=== PATIENT | female | born 1950 | race Caucasian/White ===

== ENCOUNTER → 2016-05-27 | Outpatient (CLI) | payer OTHER | END | disposition home or self-care (01) | LOC: MAMMO 13:01 | DX: Z12.31 Encounter for screening mammogram for malignant neoplasm of breast (principal) ==

== ENCOUNTER → 2016-08-27 | Outpatient (CLI) | payer OTHER | END | disposition home or self-care (01) | LOC: MEDIPORT 09:27 | DX: C67.9 Malignant neoplasm of bladder, unspecified (principal) ==

== ENCOUNTER → 2016-12-08 | Outpatient (CLI) | payer OTHER | END | disposition home or self-care (01) | LOC: MEDIPORT 10:00 | DX: C67.9 Malignant neoplasm of bladder, unspecified (principal) ==

== ENCOUNTER → 2017-01-19 | Outpatient (CLI) | payer OTHER ==
--- NOTE | 2017-01-19 11:48 | NUR ---
CLIENT AMBULATORY TO TREATMENT AREA FOR PORT FLUSH. PORT WAS PREPPED AND ACCESSED. BLOOD RETURN NOTED. PORT WAS FLUSHED WITH SALINE FOLLOWED BY HEPARIN. NEEDLE WITHDRAWN. NO BLEEDING SEEN. CLIENT THEN AMBULATED FROM TREATMENT AREA IN STABLE CONDITION
== END | disposition home or self-care (01) ==
LOC: MEDIPORT 03:00
DX: C67.9 Malignant neoplasm of bladder, unspecified (principal)

== ENCOUNTER → 2017-02-23 | Outpatient (CLI) | payer OTHER ==
--- NOTE | 2017-02-23 11:02 | NUR ---
CLIENT AMBULATORY TO TREATMENT AREA FOR PORT FLUSH. PORT WAS PREPPED X 2 AND ACCESSED USING ASEPTIC TECHNIQUE. BRISK BLOOD RETURN WAS NOTED. PORT WAS FLUSHED WITH SALINE FOLLOWED BY HEPARIN. NEEDLE WITHDRAWN. NO BLEEDING SEEN. CLIENT THEN AMBULATED FROM TREATMENT AREA IN STABLE CONDITION
== END | disposition home or self-care (01) ==
LOC: MEDIPORT 00:41
DX: Z45.2 Encounter for adjustment and management of vascular access device (principal); C67.9 Malignant neoplasm of bladder, unspecified

== ENCOUNTER → 2017-03-30 | Outpatient (CLI) | payer OTHER ==
--- NOTE | 2017-03-30 10:55 | NUR ---
PT HERE FOR MEDIPORT FLUSH. RSC ACCESSED WITH NONCORING NEEDLE AFTER SITE PREPPED. PROMPT BLOOD RETURN NOTED. HEPARIN FLUSH COMPLETE WITHOUT DIFFUCULTY PT TOLERATED WELL. DRESSING APPLIED. RESCHEDULE FOR NEXT FLUSH IN 6 WEEKS. NO BLEEDING NOTE. MARIAM LAZO RN
== END ==
LOC: MEDIPORT 03:57
DX: Z45.2 Encounter for adjustment and management of vascular access device (principal); C67.9 Malignant neoplasm of bladder, unspecified

== ENCOUNTER → 2017-05-12 | Outpatient (CLI) | payer OTHER ==
--- NOTE | 2017-05-12 11:11 | NUR ---
CLIENT AMBULATORY TO TREATMENT AREA FOR MEDIPORT FLUSH. PORT WAS PREPPED X 2 AND ACCESSED USING ASEPTIC TECHNIQUE. BRISK BLOOD RETURN WAS NOTED. PORT WAS FLUSHED WITH SALINE FOLLOWED BY HEPARIN. NEEDLE WAS WITHDRAWN. BANDAID TO SITE. NO BLEEDING SEEN. CLIENT THEN AMBULATED FROM TREATMENT AREA IN STABLE CONDITION
== END | disposition home or self-care (01) ==
LOC: MEDIPORT 01:41
DX: Z45.2 Encounter for adjustment and management of vascular access device (principal)

== ENCOUNTER → 2017-05-25 | Day surgery (SDC) | payer OTHER ==
[~2017-05-25] VITALS: Ht 162.5 cm; Wt 74.8 kg
[~2017-05-25] MED LIST: FERROUS GLUCON324 MG PO; FLONASE ALLERG9.9 ML NAS; MONTELUKAST SOD10 MG PO; OMEPRAZOLE D/R20 MG PO; PROAIR HFA8.5 GM INH; ROPINIROLE HY0.25 MG PO; VITAMIN D35000 UNIT PO
--- NOTE | ~2017-05-25 | O ---
[place], [place] OPERATIVE NOTE [id number] UN[facility] #: [id number] ROOM: DOCTOR: ARAMIS COREAS MD BIRTHDATE: [birth year] DOS: 05/25/2017 PREOPERATIVE DIAGNOSIS: Cataract, left eye. POSTOPERATIVE DIAGNOSIS: Cataract, left eye. OPERATION: Extracapsular cataract extraction by phacoemulsification with posterior chamber intraocular lens implantation, left eye. ANESTHESIA: Monitored standby. OPERATIVE FINDINGS AND PROCEDURE: 2% Xylocaine topical anesthetic gel was applied to the eye in the preop area. The patient was taken to the operating room and prepped and draped in the standard fashion for sterile intraocular surgery. A time out procedure was performed verifying correct patient, correct site and corrects lens with Chet Coreas M.D. The operating microscope was swung into position and the lid speculum was inserted. Using a Chana paracentesis blade, a paracentesis was made through clear cornea. Viscoelastic was used to fill the anterior chamber. Using a metal keratome a 2.4 mm self-sealing clear corneal cataract incision was made temporally at the limbus. Using a pre-bent 25 gauge cystotome needle, a standard continuous curvilinear capsulorrhexis was performed. The anterior capsule was removed with forceps. The lens nucleus was hydrodissected and phacoemulsified in the posterior chamber. Cortical material was removed with the irrigation aspiration hand piece and the posterior capsule was then polished with a curet under irrigation. The posterior chamber and capsular bag were filled with viscoelastic. A posterior chamber intraocular lens manufactured by: [employer], Model #[id number], and 23.5 diopters in strength were then inserted into the posterior chamber and within the capsular bag using the lens cartridge and injector system. Viscoelastic was removed using the irrigation aspiration handpiece. The anterior chamber was filled with balanced salt solution through the paracentesis. Both the paracentesis site and cataract incisions were hydrated with BSS and verified to be water-tight and self-sealing. The incision checked to be water-tight using a Weck-Lesly sponge. The integrity of the cataract wound and ocular tension were checked. Lid speculum and drapes were removed. The patient was transferred from the operating room to the recovery room in satisfactory condition. [place], [place] OPERATIVE NOTE NAME: FAUSTO TAFOYA UNIT #: [id number] ROOM: DOCTOR: ARAMIS COREAS MD BIRTHDATE: [birth year] ARAMIS COREAS MD CM:OPRECORD:OPERATIVE NOTE [id number] ARAMIS COREAS MD 05/25/17 1532 interface
[2017-05-25 12:20] VITALS: BP 133/68
[2017-05-25 13:20] VITALS: BP 120/53
[2017-05-25 13:35] VITALS: BP 119/60
[2017-05-25 13:50] VITALS: BP 111/66
== END | disposition home or self-care (01) ==
LOC: SDC 05-20 08:45
DX: H26.9 Unspecified cataract (principal); J45.909 Unspecified asthma, uncomplicated; Z98.890 Other specified postprocedural states; Z85.51 Personal history of malignant neoplasm of bladder

== ENCOUNTER → 2017-06-29 | Day surgery (SDC) | payer OTHER ==
[~2017-06-29] VITALS: Ht 162.5 cm; Wt 74.8 kg
--- NOTE | ~2017-06-29 | O ---
[place], [place] OPERATIVE NOTE NAME: FAUSTO TAFOYA UNIT #: [id number] ROOM: DOCTOR: JOSS RANGELARAMIS BIRTHDATE: [birth year] DOS: 06/29/2017 PREOPERATIVE DIAGNOSIS: Cataract, right eye. POSTOPERATIVE DIAGNOSIS: Cataract, right eye. OPERATION: Extracapsular cataract extraction by phacoemulsification with posterior chamber intraocular lens implantation, right eye. ANESTHESIA: Monitored standby. OPERATIVE FINDINGS AND PROCEDURE: 2% Xylocaine topical anesthetic gel was applied to the eye in the preop area. The patient was taken to the operating room and prepped and draped in the standard fashion for sterile intraocular surgery. A time out procedure was performed verifying correct patient, correct site and corrects lens with Chet Coreas MD. The operating microscope was swung into position and the lid speculum was inserted. Using a Chana paracentesis blade, a paracentesis was made through clear cornea. Viscoelastic was used to fill the anterior chamber. Using a metal keratome a 2.4 mm self-sealing clear corneal cataract incision was made temporally at the limbus. Using a pre-bent 25 gauge cystotome needle, a standard continuous curvilinear capsulorrhexis was performed. The anterior capsule was removed with forceps. The lens nucleus was hydrodissected and phacoemulsified in the posterior chamber. Cortical material was removed with the irrigation aspiration hand piece and the posterior capsule was then polished with a curet under irrigation. The posterior chamber and capsular bag were filled with viscoelastic. A posterior chamber intraocular lens manufactured by: [employer], Model #[id number], and 23.5 diopters in strength were then inserted into the posterior chamber and within the capsular bag using the lens cartridge and injector system. Viscoelastic was removed using the irrigation aspiration handpiece. The anterior chamber was filled with balanced salt solution through the paracentesis. Both the paracentesis site and cataract incisions were hydrated with BSS and verified to be water-tight and self-sealing. Cefuroxime 1 mg/0.1 mL was injected into the anterior chamber through the paracentesis site. The incision checked to be water-tight using a Weck-Lesly sponge. The integrity of the cataract wound and ocular tension were checked. Lid speculum and drapes were removed. The patient was transferred from the operating room to the recovery room in satisfactory condition. [place], [place] OPERATIVE NOTE NAME: FAUSTO TAFOYA UNIT #: [id number] ROOM: DOCTOR: ARAMIS COREAS MD BIRTHDATE: [birth year] ARAMIS COREAS MD CM:OPRECORD:OPERATIVE NOTE [id number] ARAMIS COREAS MD 06/29/17 1125 interface
[2017-06-29 10:00] VITALS: BP 131/77
[2017-06-29 11:05] VITALS: BP 125/72
[2017-06-29 11:20] VITALS: BP 131/75
[2017-06-29 11:34] VITALS: BP 122/65
== END ==
LOC: SDC 06-24 12:30
DX: H26.9 Unspecified cataract (principal); J45.909 Unspecified asthma, uncomplicated; Z98.890 Other specified postprocedural states; Z88.0 Allergy status to penicillin; Z88.1 Allergy status to other antibiotic agents

== ENCOUNTER → 2017-08-10 | Outpatient (CLI) | payer OTHER | END | disposition home or self-care (01) | LOC: MEDIPORT 07-06 11:00 | DX: Z45.2 Encounter for adjustment and management of vascular access device (principal) ==

== ENCOUNTER → 2017-09-21 | Outpatient (CLI) | payer OTHER ==
[2017-09-21 13:46] LABS: BASO # 0.1 10*3/uL (0.0-0.1); EOS # 0.2 10*3/uL (0.0-0.4); EOS % 4.1 % (1.0-4.0); HEMATOCRIT 39.2 % (37.0-47.0); HEMOGLOBIN 13.1 g/dl (12.0-16.0); LYMPH # 1.3 10*3/uL (1.3-4.4); LYMPH % 22.7 % (27.0-41.0); MEAN CELL VOLUME 94.2 fl (81.0-99.0); MEAN CORPUSCULAR HGB 31.5 pg (27.0-31.0); MEAN CORPUSCULAR HGB CONC 33.4 g/dl (33.0-37.0); MEAN PLATELET VOLUME 11.3 fl (9.6-12.3); MONO # 0.6 10*3/uL (0.1-1.0); MONO % 10.6 % (3.0-9.0); NEUT # 3.6 10*3/uL (2.3-7.9); NEUT % 61.4 % (47.0-73.0); PLATELET COUNT AUTOMATED 159 10*3/uL (130-400); RED BLOOD COUNT 4.16 10*6/uL (4.10-5.10); RED CELL DISTRI WIDTH 12.8 % (0-14.5); WHITE BLOOD COUNT 5.9 10*3/uL (4.8-10.8)
[2017-09-21 14:00] LABS: ALBUMIN 3.3 gm/dl (3.1-4.5); BUN 26 mg/dl (7-24); CHLORIDE 106 mmol/L (98-107); CHOLESTEROL 268 mg/dL (<200); POTASSIUM 4.2 mmol/L (3.5-5.1); SODIUM 142 mmol/L (136-145); TRIGLYCERIDES 154 mg/dl (<150); VLDL CHOLESTEROL 31 mg/dL (6-40)
[2017-09-21 14:05] LABS: ALKALINE PHOSPHATASE 108 U/L (45-117); BILIRUBIN, DIRECT < 0.1 mg/dL (0.0-0.2); HDL CHOLESTEROL 66 mg/dl (40-60); IRON 91 ug/dL (50-170); LDL CHOLESTEROL 171 mg/dL (9-159); PHOSPHOROUS 3.4 mg/dL (2.5-4.9); SGOT/AST 24 IU/L (3-35); SGPT/ALT 19 U/L (12-78); TOTAL PROTEIN 6.7 gm/dL (6.4-8.2)
[2017-09-21 14:07] LABS: VITAMIN D, 25-HYDROXY 26.5 ng/mL (30-100)
== END | disposition home or self-care (01) ==
LOC: MEDIPORT 01:51 → LAB 01:51 → MEDIPORT 11:00
PROVIDERS: Internal Medicine
DX: G25.81 Restless legs syndrome (principal); J45.20 Mild intermittent asthma, uncomplicated; Z98.84 Bariatric surgery status

== ENCOUNTER → 2017-11-02 | Outpatient (CLI) | payer OTHER | LOC: MEDIPORT 01:15 | DX: Z45.2 Encounter for adjustment and management of vascular access device (principal); I10 Essential (primary) hypertension ==

== ENCOUNTER → 2017-12-14 | Outpatient (CLI) | payer OTHER | END | disposition home or self-care (01) | LOC: MEDIPORT 08:01 | DX: Z45.2 Encounter for adjustment and management of vascular access device (principal); I10 Essential (primary) hypertension ==

== ENCOUNTER → 2018-01-25 | Outpatient (CLI) | payer OTHER | END | disposition home or self-care (01) | LOC: MEDIPORT 01:48 | DX: Z45.2 Encounter for adjustment and management of vascular access device (principal); I10 Essential (primary) hypertension ==

== ENCOUNTER → 2018-03-15 | Outpatient (CLI) | payer OTHER | LOC: MEDIPORT 00:56 | DX: Z45.2 Encounter for adjustment and management of vascular access device (principal) ==

== ENCOUNTER → 2018-04-26 | Outpatient (CLI) | payer OTHER | END | disposition home or self-care (01) | LOC: MEDIPORT 02:02 | DX: Z45.2 Encounter for adjustment and management of vascular access device (principal) ==

== ENCOUNTER → 2018-06-07 | Outpatient (CLI) | payer OTHER ==
--- NOTE | 2018-06-07 11:18 | NUR ---
CLIENT AMBULATORY TO TREATMENT AREA FOR ROUTINE PORT FLUSH. PORT WAS PREPPED X 2 AND ACCESSED USING ASEPTIC TECHNIQUE. BRISK BLOOD RETURN WAS NOTED. PORT WAS FLUSHE WITH SALINE FOLLOWED BY HEPARIN. NEEDLE WAS WITHDRAWN.BANDAID TO SITE. NO BLEEDING SEEN. CLIENT THEN AMBULATED FROM TREATMENT AREA IN STABLE CONDITION
== END | disposition home or self-care (01) ==
LOC: MEDIPORT 00:56
DX: Z45.2 Encounter for adjustment and management of vascular access device (principal); I10 Essential (primary) hypertension

== ENCOUNTER → 2018-07-18 | Outpatient (CLI) | payer OTHER ==
--- NOTE | 2018-07-18 11:28 | NUR ---
PT ARRIVED AMBULATORY TO TREAT[facility] DEPT[facility] ORDERED. PT TOLERATED WELL. NEEDLE REMOVED, SITE ASYMPTOMATIC. BANDAID APPLIED AND NO BLEEDING NOTED. NEW APPT MADE FOR PT IN 6 WEEKS ORDERED. PT DISCHARGED AMBULATORY AT THIS TIME.
== END | disposition home or self-care (01) ==
LOC: MEDIPORT 01:32
DX: Z45.2 Encounter for adjustment and management of vascular access device (principal)

== ENCOUNTER → 2018-08-29 | Outpatient (CLI) | payer OTHER | END | disposition home or self-care (01) | LOC: MEDIPORT 11:00 | DX: Z45.2 Encounter for adjustment and management of vascular access device (principal); I10 Essential (primary) hypertension ==

== ENCOUNTER → 2018-11-21 | Outpatient (CLI) | payer OTHER ==
--- NOTE | 2018-11-21 10:40 | NUR ---
MEDIPORT FLUSHED WITH NON CORING NEEDLE PER POLICY AND PROCEDURE. PT TOLERATED VERY WELL. SELMA BURGESS RN.
== END | disposition home or self-care (01) ==
LOC: MEDIPORT 00:39
DX: Z45.2 Encounter for adjustment and management of vascular access device (principal)

== ENCOUNTER → 2019-02-13 | Outpatient (CLI) | payer OTHER | END | disposition home or self-care (01) | LOC: MEDIPORT 10:30 | DX: Z45.2 Encounter for adjustment and management of vascular access device (principal) ==

== ENCOUNTER → 2019-03-27 | Outpatient (CLI) | payer OTHER | END | disposition home or self-care (01) | LOC: MEDIPORT 10:30 | DX: J45.20 Mild intermittent asthma, uncomplicated (principal) ==

== ENCOUNTER → 2019-05-08 | Outpatient (CLI) | payer OTHER ==
--- NOTE | 2019-05-08 10:58 | NUR ---
Mediport accessed with non-coring needle after cleansing with chloraprep. Prompt blood return obtained and port flushed per policy. Non-coring needle withdrawn intact and bandaid to site.
== END | disposition home or self-care (01) ==
LOC: MEDIPORT 10:30
DX: Z45.2 Encounter for adjustment and management of vascular access device (principal); J45.20 Mild intermittent asthma, uncomplicated

== ENCOUNTER → 2019-06-25 | Outpatient (CLI) | payer OTHER | END | disposition home or self-care (01) | LOC: MEDIPORT 06-19 10:30 | DX: Z45.2 Encounter for adjustment and management of vascular access device (principal); J45.20 Mild intermittent asthma, uncomplicated ==

== ENCOUNTER → 2019-08-06 | Outpatient (CLI) | payer OTHER ==
--- NOTE | 2019-08-06 10:49 | NUR ---
PT A/OX3. RIGHT CHEST WALL MEDIPORT. PORT SITE CLEANED AND NON CORING NEEDLE INSERTED. BLOOD RETURN NOTED. PORT FLUSHED PER POLICY AND PROCEDURE. NON CORING NEEDLE REMOVED INTACT AND SITE CLEANED AND BAIDAID APPLIED. PT TOLERATED WELL. SELMA BURGESS RN
== END | disposition home or self-care (01) ==
LOC: MEDIPORT 10:27
DX: Z45.2 Encounter for adjustment and management of vascular access device (principal); J45.20 Mild intermittent asthma, uncomplicated

== ENCOUNTER → 2019-10-02 | Outpatient (CLI) | payer OTHER ==
--- NOTE | 2019-10-02 10:50 | NUR ---
PT HERE FOR MEDIPORT FLUSH PER P&P. ACCESSED WITH NONCORING NEEDLE. PROMPT BLOOD RETURN NOTED. HEPARIN FLUSH PER POLICY. TOLERATED WELL. NEEDLE REMOVED AND DRESSING APPLIED. MARIAM LAZO RN
== END | disposition home or self-care (01) ==
LOC: MEDIPORT 10:30
DX: Z45.2 Encounter for adjustment and management of vascular access device (principal)

== ENCOUNTER → 2019-11-13 | Outpatient (CLI) | payer OTHER ==
--- NOTE | 2019-11-13 11:38 | NUR ---
PT HERE FOR MEDIPORT FLUSH ORDERED. SITE ACCESSED WITH NONCORING NEEDLE. HEPARIN FLUSH PER POLICY. BLOOD RETURN NOTED. NEEDLE REMOVED. DRESSING APPLIED. TOLERATED WELL. MARIAM LAZO RN
== END | disposition home or self-care (01) ==
LOC: MEDIPORT 10:16
DX: Z45.2 Encounter for adjustment and management of vascular access device (principal); R23.2 Flushing; Z98.84 Bariatric surgery status

== ENCOUNTER → 2019-12-27 | Outpatient (CLI) | payer OTHER ==
--- NOTE | 2019-12-27 10:18 | NUR ---
PT HERE FOR MEDIPORT FLUSH ORDERED. SITE ACCESSED WITH NONCORING NEEDLE RSC WITHOUT DIFFUCULTY. PROMPT BLOOD RETURN NOTED. HEPARIN FLUSH PER POLICY. NEEDLE REMOVED. DRESSING APPLIED. TOLERATED WELL. MARIAM LAZO RN
== END | disposition home or self-care (01) ==
LOC: MEDIPORT 10:00
DX: Z45.2 Encounter for adjustment and management of vascular access device (principal)

== ENCOUNTER → 2020-01-17 | Outpatient (CLI) | payer OTHER | END | disposition home or self-care (01) | LOC: MAMMO 11:23 | PROVIDERS: ATTEND Internal Medicine | DX: Z12.31 Encounter for screening mammogram for malignant neoplasm of breast (principal) ==

== ENCOUNTER → 2020-02-21 | Outpatient (CLI) | payer OTHER ==
--- NOTE | 2020-02-21 10:48 | NUR ---
PT HERE FOR MEDIPORT FLUSH ORDERED. [facility] MEDIPORT ACCESSED WITH NONCORING NEEDLE WITHOUT DIFFUCULTY. PROMPT BLOOD RETURN NOTED. FLUSHED WITH HEPARIN PER POLICY. TOLERATED WELL. NEEDLE REMOVED. DRESSING APPLIED. NO BLEEDING NOTED. RESCHEDULED FOR 04/03/20. MARIAM LAZO RN
== END | disposition home or self-care (01) ==
LOC: MEDIPORT 10:00
PROVIDERS: ATTEND Internal Medicine
DX: Z45.2 Encounter for adjustment and management of vascular access device (principal)

== ENCOUNTER → 2020-04-03 | Outpatient (CLI) | payer OTHER ==
--- NOTE | 2020-04-03 10:30 | NUR ---
PT HERE FOR MEDIPORT FLUSH ORDERED. [facility] MEDIPORT ACCESSED WITH NONCORING NEEDLE WITH PROMPT BLOOD RETURN NOTED. HEPARIN FLUSH PER P&P. NEEDLE REMOVED DRESSING APPLIED. NO BLEEDING NOTED. MARIAM LAZO RN
== END | disposition home or self-care (01) ==
LOC: MEDIPORT 10:00
PROVIDERS: ATTEND Internal Medicine
DX: Z45.2 Encounter for adjustment and management of vascular access device (principal); Z98.84 Bariatric surgery status

== ENCOUNTER → 2020-05-13 | Outpatient (CLI) | payer OTHER ==
--- NOTE | 2020-05-13 11:02 | NUR ---
1101- MEDIPORT ACCESSED WITH NON-CORING NEEDLE AFTER CLEANSING WITH CHLORAPREP. PROMPT BLOOD RETURN OBTAINED. PORT FLUSHED PER POLICY AND NON-CORING NEEDLE WITHDRAWN INTACT. BANDAID TO SITE.
== END | disposition home or self-care (01) ==
LOC: MEDIPORT 10:00
PROVIDERS: ATTEND Internal Medicine
DX: Z45.2 Encounter for adjustment and management of vascular access device (principal); Z98.84 Bariatric surgery status

== ENCOUNTER → 2020-06-24 | Outpatient (CLI) | payer OTHER ==
[2020-06-24 15:09] LABS: BUN 26 mg/dl (7-24); CHLORIDE 106 mmol/L (98-107); CREATININE 1.07 mg/dL (0.55-1.02); POTASSIUM 4.2 mmol/L (3.5-5.1); SODIUM 140 mmol/L (136-145)
== END | disposition home or self-care (01) ==
LOC: MEDIPORT 13:00 → LAB 13:38
PROVIDERS: ATTEND Specialist
DX: R31.0 Gross hematuria (principal); Z98.84 Bariatric surgery status

== ENCOUNTER → 2020-06-25 | Outpatient (CLI) | payer OTHER | END | disposition home or self-care (01) | LOC: CT 00:21 | PROVIDERS: ATTEND Specialist | DX: R31.0 Gross hematuria (principal) ==

== ENCOUNTER → 2020-08-05 | Outpatient (CLI) | payer OTHER | END | disposition home or self-care (01) | LOC: MEDIPORT 13:00 | PROVIDERS: ATTEND Internal Medicine | DX: Z45.2 Encounter for adjustment and management of vascular access device (principal) ==

== ENCOUNTER → 2020-10-23 | Outpatient (CLI) | payer OTHER | END | disposition home or self-care (01) | LOC: MEDIPORT 10:58 | PROVIDERS: ATTEND Internal Medicine | DX: Z45.2 Encounter for adjustment and management of vascular access device (principal) ==

== ENCOUNTER → 2020-12-04 | Outpatient (CLI) | payer OTHER | END | disposition home or self-care (01) | LOC: MEDIPORT 10:44 | PROVIDERS: ATTEND Internal Medicine | DX: Z45.2 Encounter for adjustment and management of vascular access device (principal) ==

== ENCOUNTER → 2021-01-15 | Outpatient (CLI) | payer OTHER | END | disposition home or self-care (01) | LOC: MEDIPORT 10:46 | PROVIDERS: ATTEND Internal Medicine | DX: Z45.2 Encounter for adjustment and management of vascular access device (principal) ==

== ENCOUNTER → 2021-02-26 | Outpatient (CLI) | payer OTHER | END | disposition home or self-care (01) | LOC: MEDIPORT 01-27 11:00 | PROVIDERS: ATTEND Internal Medicine | DX: Z45.2 Encounter for adjustment and management of vascular access device (principal) ==

== ENCOUNTER → 2021-05-22 | Outpatient (CLI) | payer OTHER | END | disposition home or self-care (01) | LOC: MEDIPORT 05-21 11:00 | PROVIDERS: ATTEND Internal Medicine | DX: Z45.2 Encounter for adjustment and management of vascular access device (principal) ==

== ENCOUNTER → 2021-07-08 | Outpatient (CLI) | payer OTHER | END | disposition home or self-care (01) | LOC: MEDIPORT 11:00 | PROVIDERS: ATTEND Internal Medicine | DX: Z45.2 Encounter for adjustment and management of vascular access device (principal) ==

== ENCOUNTER → 2021-09-02 | Outpatient (CLI) | payer OTHER | END | disposition home or self-care (01) | LOC: MEDIPORT 10:51 | PROVIDERS: ATTEND Internal Medicine | DX: Z45.2 Encounter for adjustment and management of vascular access device (principal) ==

== ENCOUNTER → 2021-10-14 | Outpatient (CLI) | payer OTHER | END | disposition home or self-care (01) | LOC: MEDIPORT 10:54 | PROVIDERS: ATTEND Internal Medicine | DX: Z45.2 Encounter for adjustment and management of vascular access device (principal) ==

== ENCOUNTER → 2021-11-25 | Outpatient (CLI) | payer OTHER | END | disposition home or self-care (01) | LOC: MEDIPORT 11:00 | PROVIDERS: ATTEND Internal Medicine | DX: Z45.2 Encounter for adjustment and management of vascular access device (principal) ==

== ENCOUNTER → 2022-01-06 | Outpatient (CLI) | payer OTHER | END | disposition home or self-care (01) | LOC: MEDIPORT 10:43 | PROVIDERS: ATTEND Internal Medicine | DX: Z45.2 Encounter for adjustment and management of vascular access device (principal) ==

== ENCOUNTER → 2022-02-17 | Outpatient (CLI) | payer OTHER | END | disposition home or self-care (01) | LOC: MEDIPORT 11:00 | PROVIDERS: ATTEND Internal Medicine | DX: Z45.2 Encounter for adjustment and management of vascular access device (principal) ==

== ENCOUNTER → 2022-03-24 | Outpatient (CLI) | payer OTHER | END | disposition home or self-care (01) | LOC: MEDIPORT 11:00 | PROVIDERS: ATTEND Internal Medicine | DX: Z45.2 Encounter for adjustment and management of vascular access device (principal) ==

== ENCOUNTER → 2022-05-05 | Outpatient (CLI) | payer OTHER | END | disposition home or self-care (01) | LOC: MEDIPORT 11:00 | PROVIDERS: ATTEND Internal Medicine | DX: Z45.2 Encounter for adjustment and management of vascular access device (principal) ==

== ENCOUNTER → 2022-06-18 | Outpatient (CLI) | payer OTHER | END | disposition home or self-care (01) | LOC: MEDIPORT 06-16 11:00 | PROVIDERS: ATTEND Internal Medicine | DX: Z45.2 Encounter for adjustment and management of vascular access device (principal) ==

== ENCOUNTER → 2022-07-29 | Outpatient (CLI) | payer OTHER | END | disposition home or self-care (01) | LOC: MEDIPORT 11:00 | PROVIDERS: ATTEND Internal Medicine | DX: Z45.2 Encounter for adjustment and management of vascular access device (principal) ==

== ENCOUNTER → 2022-09-16 | Outpatient (CLI) | payer OTHER | END | disposition home or self-care (01) | LOC: MEDIPORT 09-09 11:00 | PROVIDERS: ATTEND Internal Medicine | DX: Z45.2 Encounter for adjustment and management of vascular access device (principal) ==

== ENCOUNTER → 2022-12-17 | Outpatient (CLI) | payer OTHER | END | disposition home or self-care (01) | LOC: MEDIPORT 12-13 11:00 | PROVIDERS: ATTEND Internal Medicine | DX: Z45.2 Encounter for adjustment and management of vascular access device (principal) ==

== ENCOUNTER → 2023-01-28 | Outpatient (CLI) | payer OTHER | END | disposition home or self-care (01) | LOC: MEDIPORT 11:00 | PROVIDERS: ATTEND Internal Medicine | DX: Z45.2 Encounter for adjustment and management of vascular access device (principal) ==

== ENCOUNTER → 2023-03-11 | Outpatient (CLI) | payer OTHER | END | disposition home or self-care (01) | LOC: MEDIPORT 11:00 | PROVIDERS: ATTEND Internal Medicine | DX: Z45.2 Encounter for adjustment and management of vascular access device (principal) ==

== ENCOUNTER → 2023-04-25 | Outpatient (CLI) | payer OTHER | END | disposition home or self-care (01) | LOC: MAMMO 11:22 | PROVIDERS: ATTEND Internal Medicine | DX: Z12.31 Encounter for screening mammogram for malignant neoplasm of breast (principal) ==

== ENCOUNTER → 2023-04-27 | Outpatient (CLI) | payer OTHER | END | disposition home or self-care (01) | LOC: MEDIPORT 04-22 11:00 | PROVIDERS: ATTEND Internal Medicine | DX: Z45.2 Encounter for adjustment and management of vascular access device (principal) ==

== ENCOUNTER → 2023-06-08 | Outpatient (CLI) | payer OTHER | END | disposition home or self-care (01) | LOC: MEDIPORT 11:00 | PROVIDERS: ATTEND Internal Medicine | DX: Z45.2 Encounter for adjustment and management of vascular access device (principal); Z90.6 Acquired absence of other parts of urinary tract ==

== ENCOUNTER → 2023-09-13 | Outpatient (CLI) | payer OTHER ==
[~2023-09-13] MED LIST changes: +HEPARIN SODIUM 500 UNIT/5 ML SYR IV ONE; +HEPARIN SODIUM 500 UNIT/5 ML SYR IV SCH; +SODIUM CHLORIDE 0.9% 10 ML SYR IV PRN
== END | disposition home or self-care (01) ==
LOC: MEDIPORT 01:50
PROVIDERS: ATTEND Internal Medicine
DX: Z45.2 Encounter for adjustment and management of vascular access device (principal)

== ENCOUNTER → 2023-10-25 | Outpatient (CLI) | payer OTHER | END | disposition home or self-care (01) | LOC: MEDIPORT 00:35 | PROVIDERS: ATTEND Internal Medicine | DX: Z45.2 Encounter for adjustment and management of vascular access device (principal) ==

== ENCOUNTER → 2023-12-06 | Outpatient (CLI) | payer OTHER | END | disposition home or self-care (01) | LOC: MEDIPORT 10:47 | PROVIDERS: ATTEND Internal Medicine | DX: Z45.2 Encounter for adjustment and management of vascular access device (principal) ==

== ENCOUNTER → 2024-02-28 | Outpatient (CLI) | payer OTHER | END | disposition home or self-care (01) | LOC: MEDIPORT 11:00 | PROVIDERS: ATTEND Internal Medicine | DX: Z45.2 Encounter for adjustment and management of vascular access device (principal) ==

== ENCOUNTER → 2024-04-17 | Outpatient (CLI) | payer OTHER | END | disposition home or self-care (01) | LOC: MEDIPORT 04-09 11:00 | PROVIDERS: ATTEND Internal Medicine | DX: Z45.2 Encounter for adjustment and management of vascular access device (principal) ==

== ENCOUNTER → 2024-05-29 | Outpatient (CLI) | payer OTHER | END | disposition home or self-care (01) | LOC: MEDIPORT 10:23 | PROVIDERS: ATTEND Internal Medicine | DX: Z45.2 Encounter for adjustment and management of vascular access device (principal); Z90.6 Acquired absence of other parts of urinary tract ==

== ENCOUNTER → 2024-07-10 | Outpatient (CLI) | payer OTHER | END | disposition home or self-care (01) | LOC: MEDIPORT 10:30 | PROVIDERS: ATTEND Internal Medicine | DX: Z45.2 Encounter for adjustment and management of vascular access device (principal) ==

== ENCOUNTER → 2024-08-21 | Outpatient (CLI) | payer OTHER | END | disposition home or self-care (01) | LOC: MEDIPORT 01:26 | PROVIDERS: ATTEND Internal Medicine | DX: Z45.2 Encounter for adjustment and management of vascular access device (principal) ==

== ENCOUNTER → 2024-10-02 | Outpatient (CLI) | payer OTHER | END | disposition home or self-care (01) | LOC: US 02:18 → MEDIPORT 11:00 | PROVIDERS: ATTEND Internal Medicine Nephrology | DX: Z45.2 Encounter for adjustment and management of vascular access device (principal); N18.31 Chronic kidney disease, stage 3a; N28.89 Other specified disorders of kidney and ureter; Z98.890 Other specified postprocedural states ==

== ENCOUNTER → 2024-11-13 | Outpatient (CLI) | payer OTHER ==
[~2024-11-13] MED LIST changes: -HEPARIN SODIUM 500 UNIT/5 ML SYR IV SCH; -SODIUM CHLORIDE 0.9% 10 ML SYR IV PRN
== END | disposition home or self-care (01) ==
LOC: MEDIPORT 11-12 11:00
PROVIDERS: ATTEND Family Medicine
DX: Z45.2 Encounter for adjustment and management of vascular access device (principal); Z85.51 Personal history of malignant neoplasm of bladder

== ENCOUNTER → 2024-12-25 | Outpatient (CLI) | payer OTHER ==
[~2024-12-25] MED LIST changes: +HEPARIN SODIUM 500 UNIT/5 ML SYR IV SCH; +SODIUM CHLORIDE 0.9% 10 ML SYR IV PRN
== END | disposition home or self-care (01) ==
LOC: MEDIPORT 10:50
PROVIDERS: ATTEND Family Medicine
DX: Z45.2 Encounter for adjustment and management of vascular access device (principal); Z85.51 Personal history of malignant neoplasm of bladder

== ENCOUNTER → 2025-02-01 | Outpatient (CLI) | payer OTHER | END | disposition home or self-care (01) | LOC: MEDIPORT 10:52 | PROVIDERS: ATTEND Family Medicine | DX: Z45.2 Encounter for adjustment and management of vascular access device (principal); Z85.51 Personal history of malignant neoplasm of bladder ==

== ENCOUNTER → 2025-02-27 | Outpatient (CLI) | payer OTHER ==
[~2025-02-27] MED LIST changes: -HEPARIN SODIUM 500 UNIT/5 ML SYR IV ONE; -HEPARIN SODIUM 500 UNIT/5 ML SYR IV SCH; -SODIUM CHLORIDE 0.9% 10 ML SYR IV PRN
== END | disposition home or self-care (01) ==
LOC: RAD 02-22 10:00
PROVIDERS: ATTEND Family Medicine
DX: M85.89 Other specified disorders of bone density and structure, multiple sites (principal)

== ENCOUNTER → 2025-03-15 | Outpatient (CLI) | payer OTHER ==
[~2025-03-15] MED LIST changes: +HEPARIN SODIUM 500 UNIT/5 ML SYR IV ONE; +HEPARIN SODIUM 500 UNIT/5 ML SYR IV SCH; +SODIUM CHLORIDE 0.9% 10 ML SYR IV PRN
== END | disposition home or self-care (01) ==
LOC: MEDIPORT 00:14
PROVIDERS: ATTEND Family Medicine
DX: Z45.2 Encounter for adjustment and management of vascular access device (principal); Z85.51 Personal history of malignant neoplasm of bladder